=== PATIENT | female | born 1935 | race Caucasian/White ===

== ENCOUNTER 2017-07-31 09:30 | Emergency (ER) | payer OTHER ==
[2017-07-31 09:52] VITALS: TEMP 97.3; BMI 27.3
--- NOTE | 2017-07-31 09:56 | PDOC ---
History of Present Illness - General History Source: Patient Exam Limitations: No Limitations - History of Present Illness Initial Comments: 07/31/17 10:27 The patient is a 82-year-old female with a significant past medical history of arthritis and HTN, who presents to the emergency department with right upper extremity pain and right hip pain s/p mechanical fall this morning. Patient reports that she tripped on uneven ground while walking to [place] today and fell onto her right side. She states her right shoulder made impact, and now complains of pain at the right shoulder and right humerus. She also admits to lateral right hip pain. She reports she was found on the ground and could not get up after the fall. She states she ambulates without assistance at baseline. Patient denies any head trauma, syncope, LOC, headache, numbness or tingling, swelling, or loss of sensation. The patient denies chest pain, shortness of breath, and dizziness. The patient denies fever, chills, abdominal pain, nausea, vomit, diarrhea and constipation. The patient denies dysuria, frequency, urgency and hematuria. Allergies: NKDA Past Surgical History: None reported Social History: No toxic habits reported PCP: Dr. Alcocer <Priscilla Weems - Last Filed: 07/31/17 10:27> <Laurence Clifton - Last Filed: 07/31/17 13:12> - General Chief Complaint: Injury Stated Complaint: FALL Time Seen by Provider: 07/31/17 09:46 Past History <Priscilla Weems - Last Filed: 07/31/17 10:27> - Suicide/Smoking/Psychosocial Hx Smoking History: Never smoked Hx Alcohol Use: No Drug/Substance Use Hx: No <Laurence Clifton - Last Filed: 07/31/17 13:12> - Past Medical History Allergies/Adverse Reactions: Allergies Allergy/AdvReac Type Severity Reaction Status Date / Time No Known Allergies Allergy Verified 07/31/17 10:04 Home Medications: Ambulatory Orders Oxycodone HCl/Acetaminophen [Percocet 5-325 mg Tablet] 1 tab PO Q6H PRN #12 tablet MDD 4 tabs a day 07/31/17 Review of Systems - Review of Systems Able to Perform ROS?: Yes Comments:: 07/31/17 10:27 GENERAL/CONSTITUTIONAL: No fever or chills. No weakness. HEAD, EYES, EARS, NOSE AND THROAT: No change in vision. No ear pain or discharge. No sore throat. CARDIOVASCULAR: No chest pain or shortness of breath. RESPIRATORY: No cough, wheezing, or hemoptysis. GASTROINTESTINAL: No nausea, vomiting, diarrhea or constipation. GENITOURINARY: No dysuria, frequency, or change in urination. MUSCULOSKELETAL: No muscle swelling or pain. No neck or back pain. (+) Right upper extremity pain. (+) Right hip pain. SKIN: No rash NEUROLOGIC: No headache, vertigo, loss of consciousness, or change in strength/ sensation. ENDOCRINE: No increased thirst. No abnormal weight change. HEMATOLOGIC/LYMPHATIC: No anemia, easy bleeding, or history of blood clots. ALLERGIC/IMMUNOLOGIC: No hives or skin allergy. <Priscilla Weems - Last Filed: 07/31/17 10:27> *Physical Exam - Vital Signs Last Vital Signs Temp Pulse Resp BP Pulse Ox 97.3 F L 68 H 103/51 100 07/31/17 09:49 07/31/17 09:49 07/31/17 09:49 07/31/17 09:49 - Physical Exam Comments: 07/31/17 10:27 GENERAL: Awake, alert, and fully oriented, in no acute distress HEAD: No signs of trauma EYES: PERRLA, EOMI, sclera anicteric, conjunctiva clear NECK: Normal ROM, supple, no lymphadenopathy, JVD, or masses LUNGS: Breath sounds equal, clear to auscultation bilaterally. No wheezes, and no crackles HEART: Regular rate and rhythm, normal S1 and S2, no murmurs, rubs or gallops ABDOMEN: Soft, nontender, normoactive bowel sounds. No guarding, no rebound. No masses EXTREMITIES: Full range of motion of the BLE, no edema. No clubbing or cyanosis. No cords or erythema. Radial pulses intact. (+) Lateral right hip ttp. (+) Right humerus, right shoulder, and right forearm ttp. NEUROLOGICAL: Cranial nerves II through XII grossly intact. Sensation intact. No C-spine, T-spine, or L-spine tenderness. Normal speech. SKIN: Warm, Dry, normal turgor, no rashes or lesions noted. <Priscilla Weems - Last Filed: 07/31/17 10:27> - Vital Signs Last Vital Signs Temp Pulse Resp BP Pulse Ox 97.3 F L 68 H 103/51 100 07/31/17 09:49 07/31/17 09:49 07/31/17 09:49 07/31/17 09:49 <Laurence Clifton - Last Filed: 07/31/17 13:12> Medical Decision Making - Medical Decision Making 07/31/17 10:16 a/p: 82yo female with mechanical fall in [place] -arm pain -no head injury, no loc, no antiplts/anticoags -no neck pain -will obtain xrays of arm/pelvis -pain control -monitor and reassess -family at bedside, updated and agrees with the plan 07/31/17 10:58 pt with humerus fx - placed in shoulder immobilizer and sling for comfort will need ortho follow up and pain control pending radiology reads on rest of xrays discussed plan with the patient. 07/31/17 13:10 R humerus fx no other fx will give ortho follow up answered all questions sling in place immobilizer in place discussed ice to arm discussed pmd and ortho follow up discussed assisting with walking at home answered all questions stable for d/c to home <Laurence Clifton - Last Filed: 07/31/17 13:12> *DC/Admit/Observation/Transfer - Attestations Scribe Attestion: 07/31/17 10:27 Documentation prepared by Priscilla Weems, acting as medical technologist chemistry for Laurence Clifton DO, MD/. <Priscilla Weems - Last Filed: 07/31/17 10:27> - Discharge Dispostion Admit: No - Attestations Physician Attestion: 07/31/17 11:03 I, Dr. Laurence Clifton DO, attest that this document has been prepared under my direction and personally reviewed by me in its entirety. I further attest, that it accurately reflects all work, treatment, procedures and medical decision -making performed by me. <Laurence Clifton - Last Filed: 07/31/17 13:12> Diagnosis at time of Disposition: Fracture, humerus - Discharge Dispostion Disposition: HOME Condition at time of disposition: Stable - Prescriptions Prescriptions: Oxycodone HCl/Acetaminophen [Percocet 5-325 mg Tablet] 1 tab PO Q6H PRN #12 tablet MDD 4 tabs a day PRN Reason: Pain - Referrals Referrals: Haim Alcocer MD [Primary Care Provider] - Pedro Luis Vides MD [Staff Physician] - - Patient Instructions Printed Discharge Instructions: How to Use a Sling, DI for Shoulder Fracture Additional Instructions: Please take all medications as prescribed. Please return to the ED with any further complaints. Please apply ice to the arm 20min on and 20 min off. Please use the sling. Please make an appointment to see the orthopedist this week and follow up with your PMD this week.
[2017-07-31 13:46] VITALS: BP 105/55; PULSE 66
== END 2017-07-31 13:47 | disposition home or self-care (01) ==
LOC: JER 09:30
PROC: 2W3AXYZ Immobilization of Right Upper Arm using Other Device (ICD-10-PCS; principal; 2017-07-31)
DX: S42.211A Unspecified displaced fracture of surgical neck of right humerus, initial encounter for closed fracture (principal); W18.39XA Other fall on same level, initial encounter; Y93.01 Activity, walking, marching and hiking; Y92.480 Sidewalk as the place of occurrence of the external cause; Y99.8 Other external cause status; I10 Essential (primary) hypertension; M12.9 Arthropathy, unspecified
CPT/HCPCS: 29240; 73030-TC-RT-FY; 73060-TC-RT-FY; 73090-TC-RT-FY; 73523-TC-FY; 99281-25